=== PATIENT | female | born 1960 | race Caucasian/White ===

== ENCOUNTER → 2017-05-16 08:30 | Outpatient (CLI) | payer MEDICAID, SELFPAY | PROVIDERS: Family Provider Internal Medicine; PCP Internal Medicine; Visit Provider Clinical Nurse Specialist | DX: R00.2 Palpitations (principal) | CPT/HCPCS: 93225; 93226 ==

== ENCOUNTER 2017-06-14 08:00 | Outpatient (RCR) | payer MEDICAID, SELFPAY | END 2017-07-09 23:59 | LOC: NS 08:00 | PROVIDERS: Family Provider Internal Medicine; PCP Internal Medicine; Visit Provider Clinical Nurse Specialist | DX: E66.9 Obesity, unspecified (principal); Z71.3 Dietary counseling and surveillance | CPT/HCPCS: 97802 ==

== ENCOUNTER → 2017-06-30 07:29 | Outpatient (CLI) | payer MEDICAID, SELFPAY ==
--- NOTE | 2017-06-30 07:31 | ECHOD_ITS ---
Reason For Study: palpitations Procedure This was a 2D Doppler, Color Flow transthoracic echocardiogram. Exam performed in department. Left Ventricle Normal size and thickness. The estimated ejection fraction is 65 %. Stage 1 diastolic dysfunction. No regional wall motion abnormalities noted. Right Ventricle Normal size and thickness. Normal systolic function. Atria Normal left atrium. Normal right atrium. Normal atrial septum. Mitral Valve The mitral valve is structurally normal. No prolapse or stenosis seen. Tricuspid Valve Normal tricuspid valve. Trivial tricuspid valve insufficiency. Right ventricular systolic pressure estimated to be 35 mmHg. Aortic Valve Normal aortic valve. Trisinus/trileaflet aortic valve. Pulmonic Valve Normal pulmonic valve. Great Vessels Normal aortic root. Normal arch. Normal inferior vena cava. Inferior vena cava collapse with sniff. Pericardium/Pleural No pericardial effusion. MMode/2D Measurements & Calculations LVIDd: 4.8 cm IVSd: 0.87 cm LVOT diam: 2.1 cm LVIDs: 2.8 cm LVPWd: 0.97 cm LVOT area: 3.4 cm2 RVDd: 3.3 cm FS: 41.6 % Ao root diam: 2.9 cm LAV(MOD-bp): 63.2 ml LA A4 area: 18.7 cm2 LA dimension: 3.9 cm LAV(MOD-bp) Indexed: 30.0 ml/m2 LAV(MOD-sp2): 58.9 ml LAV(MOD-sp4): 57.8 ml RA A4 area: 14.8 cm2 Time Measurements MV dec time: 0.23 sec Doppler Measurements & Calculations MV E max luis: 92.5 cm/sec Lat Peak E' Luis: 10.9 cm/sec Med Peak E' Luis: 6.0 cm/sec MV A max luis: 113.0 cm/sec E/E' lat: 8.5 E/E' med: 15.4 MV E/A: 0.82 Ao V2 max: 175.8 cm/sec LV V1 max: 121.1 cm/sec SV(LVOT): 95.4 ml Ao max P.4 mmHg LV V1 max P.9 mmHg Ao V2 mean: 123.4 cm/sec LV V1 mean P.2 mmHg Ao mean P.6 mmHg LV V1 mean: 86.1 cm/sec Ao V2 VTI: 38.3 cm LV V1 VTI: 28.4 cm TYE(I,D): 2.5 cm2 TYE(V,D): 2.3 cm2 PA V2 max: 120.2 cm/sec TR max luis: 272.9 cm/sec TR max P.8 mmHg Interpretation Summary The estimated ejection fraction is 65 %. Stage 1 diastolic dysfunction. Trivial tricuspid valve insufficiency. Right ventricular systolic pressure estimated to be 35 mmHg. There is no comparison study available. Ordering Physician: Eugene Bustillo Referring Physician: Emily Grey Performed By: Mell Ch, RADHA, RVT
[2017-06-30 09:16] LABS: AST(SGOT) 35 U/L (15-37); Alanine Aminotransfer ALT/SGPT 54 U/L (13-56); Albumin, Serum 3.6 g/dL (3.2-5.0); Alkaline Phosphatase 71 U/L (45-117); Bilirubin, Direct 0.14 mg/dL (0.00-0.30); Cholesterol 162 mg/dL (200); Globulin 4.4 g/dL (2.2-4.2); High Density Lipoprotein 43 mg/dL; Triglycerides 129 mg/dL; Very Low Density Lipoprotein 26 mg/dL (5-40)
== END ==
PROVIDERS: Family Provider Internal Medicine; PCP Internal Medicine; Visit Provider Internal Medicine Cardiovascular Disease
DX: I34.0 Nonrheumatic mitral (valve) insufficiency (principal); I47.1 Supraventricular tachycardia; I10 Essential (primary) hypertension; R00.2 Palpitations
CPT/HCPCS: 36415; 80061; 80076; 93306

== ENCOUNTER → 2017-07-14 10:02 | Outpatient (CLI) | payer MEDICAID, SELFPAY ==
--- NOTE | 2017-07-14 10:04 | STE_ITS ---
Reason For Study: PALPITATIONS Stress Results Protocol: ARTIE Maximum Predicted HR: 163 bpm Target HR: 139 bpm % Maximum Predicted HR: 92 % DurationHeart Rate Stage (mm:ss) (bpm) BP BASELINE 70 138/90 STAGE 1 3:00 12 0 182/94 STAGE 2 3:00 15 0 198/100 RECOVERY 86 160/90 Stress Duration: 6:00 mm:ss Maximum Stress HR: 150 bpm Baseline Echocardiogram Findings The estimated ejection fraction is 65 %. Stress Echo Wall motion Data Resting WMIntermediate WMStress WM Resting Wall Motion Wall Motion Stress No regional wall motion No regional wall motion abnormalities noted. abnormalities noted. EKG Data Normal intervals are noted. The patient exercised according to the regular Artie protocol for a total duration of 6:00. The maximum heart rate attained was 151 beats per minute. This was 92% of maximum predicted heart rate. The patient exercised into stage 3 of the Artie protocol. During stress, there were no ST or T wave changes noted to suggest ischemia. No clinical angina was noted. Interpretation Summary The estimated ejection fraction is 65 %. Normal adequate treadmill echocardiogram. Negative for ischemia by EKG and echocardiographic criteria. No anginal symptoms noted. No arrhythmias noted. Rare PVCs noted. Hypertensive blood pressure response to exercise. Below average exercise capacity for age. Test terminated due to attainment of target heart rate. Final LVEF of 70%. No complications. Ordering Physician: Eugene Bustillo Referring Physician: Eugene Bustillo Performed By: Mell Ch, RADHA, RVT
== END ==
PROVIDERS: Family Provider Internal Medicine; PCP Internal Medicine; Visit Provider Internal Medicine Cardiovascular Disease
DX: I47.1 Supraventricular tachycardia (principal); R00.2 Palpitations; I10 Essential (primary) hypertension
CPT/HCPCS: 93017; 93350

== ENCOUNTER → 2019-10-04 06:57 | Outpatient (CLI) | payer MEDICAID, SELFPAY ==
[2019-09-20 09:01] VITALS: BMI 36.8
[2019-10-04 07:18] LABS: Hemoglobin 13.1 g/dL (12.0-15.0); Mean Corpuscular Hgb 28.9 pg (27.0-32.0); Mean Corpuscular Volume 90.5 fL (81-99); Mean Platelet Vol. 10.5 fl (6.2-12.0); Platelet Count 293 K/mm3 (150-450); RBC Distribution Width CV 13.6 % (11.6-14.6); RBC Distribution Width SD 45.1 fl (35.1-43.9); Red Blood Count 4.53 M/mm3 (4.2-5.4); White Blood Count 7.2 K/mm3 (4.4-11.0)
[2019-10-04 07:55] LABS: AST(SGOT) 43 U/L (15-37); Alanine Aminotransfer ALT/SGPT 71 U/L (13-56); Albumin, Serum 3.8 g/dL (3.2-5.0); Alkaline Phosphatase 65 U/L (45-117); Anion Gap 7 (5-15); BUN 15 mg/dL (7-18); BUN/Creat Ratio 21.5 RATIO (10-20); Bilirubin, Direct 0.18 mg/dL (0.00-0.30); Calcium,Total 9.3 mg/dL (8.5-10.1); Chloride 107 mmol/L (98-107); Cholesterol 155 mg/dL (200); EST Glomerular Filtration Rate 91 mL/min (>60); Est Glom Filt Rate - Afr Amer 110 mL/min (>60); Globulin 4.4 g/dL (2.2-4.2); Glucose 112 mg/dL (74-106); High Density Lipoprotein 47 mg/dL; Protein, Total 8.2 g/dL (6.4-8.2); Sodium Level 139 mmol/L (136-145); Triglycerides 96 mg/dL; Very Low Density Lipoprotein 19 mg/dL (5-40)
== END ==
PROVIDERS: PCP Internal Medicine; Referring Provider Internal Medicine Cardiovascular Disease; Visit Provider Internal Medicine Cardiovascular Disease
DX: R00.2 Palpitations (principal); I10 Essential (primary) hypertension; R79.89 Other specified abnormal findings of blood chemistry
CPT/HCPCS: 36415; 80048; 80061; 80076; 85027

== ENCOUNTER → 2019-10-18 07:38 | Outpatient (CLI) | payer MEDICAID, SELFPAY ==
[2019-09-20 09:01] VITALS: BMI 36.8
--- NOTE | 2019-10-18 07:40 | ECHOCS_ITS ---
Procedure This was a 2D Doppler, Color Flow transthoracic echocardiogram. The study was technically difficult. Contrast injection was performed. Exam performed in department. Left Ventricle Normal size and thickness. The estimated ejection fraction is 65 %. Stage 1 diastolic dysfunction. No regional wall motion abnormalities noted. Right Ventricle Normal size and thickness. Normal systolic function. Atria Normal left atrium. Normal right atrium. Normal atrial septum. Mitral Valve The mitral valve is structurally normal. No prolapse or stenosis seen. Trivial mitral valve insufficiency. Tricuspid Valve Normal tricuspid valve. Trivial tricuspid valve insufficiency. Right ventricular systolic pressure estimated to be 36 mmHg. Aortic Valve Trisinus/trileaflet aortic valve. Pulmonic Valve Normal pulmonic valve. Great Vessels Normal aortic root. Normal arch. Normal inferior vena cava. Inferior vena cava collapse with sniff. Pericardium/Pleural No pericardial effusion. Medication 22 gauge I.V. with prn adaptor inserted into right arm. Diluted definity 3.0ml given slow IV push to enhance endocardial definition. MMode/2D Measurements & Calculations LVIDd: 5.6 cm IVSd: 0.71 cm Ao root diam: 3.3 cm LVIDs: 3.2 cm LVPWd: 0.83 cm RVDd: 3.0 cm FS: 42.5 % LAV(MOD-bp): 59.9 ml LVAd ap4: 38.6 cm2 SV(MOD-sp4): 94.5 ml LAV(MOD-bp) Indexed: 28.0 ml/m2 EDV(MOD-sp4): 140.4 ml LAV(MOD-sp2): 61.8 ml EDV(sp4-el): 141.5 ml LAV(MOD-sp4): 46.7 ml LVAs ap4: 19.1 cm2 ESV(MOD-sp4): 45.9 ml ESV(sp4-el): 45.4 ml EF(MOD-sp4): 67.3 % EF(sp4-el): 67.9 % SV(sp4-el): 96.1 ml LA A4 area: 16.8 cm2 LA dimension(2D): 3.8 cm RA A4 area: 10.9 cm2 Time Measurements MV dec time: 0.28 sec Doppler Measurements & Calculations MV E max luis: 94.5 cm/sec Lat Peak E' Luis: 8.3 cm/sec Med Peak E' Luis: 5.7 cm/sec MV A max luis: 118.2 cm/sec E/E' lat: 11.3 E/E' med: 16.4 MV E/A: 0.80 Ao V2 max: 166.7 cm/sec LV V1 max: 114.5 cm/sec PA V2 max: 115.4 cm/sec Ao max P.1 mmHg LV V1 max P.3 mmHg TR max luis: 279.9 cm/sec TR max P.3 mmHg Interpretation Summary The estimated ejection fraction is 65 %. Stage 1 diastolic dysfunction. Trivial mitral valve insufficiency. Trivial tricuspid valve insufficiency. Right ventricular systolic pressure estimated to be 36 mmHg. Compared to echo report dated 06/30/2017, no appreciable changes noted. The study was technically difficult. Contrast injection was performed. Ordering Physician: Eugene Bustillo Referring Physician: DUNG MORALES Performed By: Suri Choi, RDCS, RVT
== END ==
PROVIDERS: PCP Internal Medicine; Referring Provider Internal Medicine Cardiovascular Disease; Visit Provider Internal Medicine Cardiovascular Disease
DX: R00.2 Palpitations (principal); R07.9 Chest pain, unspecified; I47.1 Supraventricular tachycardia
CPT/HCPCS: 93306; Q9957; A4216; C8929

== ENCOUNTER → 2019-11-30 09:23 | Outpatient (CLI) | payer MEDICAID, SELFPAY ==
[2019-09-20 09:01] VITALS: BMI 36.8
--- NOTE | 2019-11-30 09:23 | STEWCON_ITS ---
Reason For Study: CHEST PAIN, PALPS, SVT Stress Results Protocol: Stress Echocardiogram Maximum Predicted HR: 161 bpm Target HR: 137 bpm % Maximum Predicted HR: 92 % DurationHeart Rate Stage (mm:ss) (bpm) BP Comment BASELINE 64 122/86DILUTED DEFINITY 2 CC USED ARTIE PROTOCOL- STAGE 1 3:00 123 124/82PVCS, VENT COUPLETS, CHEST TIGHTNESS ARTIE PROTOCOL- STAGE 2 3:00 134 132/84CHEST TIGHTNESS SUBSIDED WHEN ECTOPY SUBSIDED ARTIE PROTOCOL- STAGE 3 0:30 148 / NO FURTHER CP, ECTOPY SUBSIDED RECOVERY 89 128/90DENIES COMPLAINT Stress Duration: 6:30 mm:ss Maximum Stress HR: 148 bpm Baseline Echocardiogram Findings The estimated ejection fraction is 65 %. Stress Echo Wall motion Data Resting WM Intermediate WM Stress WM Resting Wall Motion Wall Motion Stress No regional wall motion No regional wall motion abnormalities noted. abnormalities noted. EKG Data The baseline ECG displays normal sinus rhythm. The patient exercised according to the regular Artie protocol for a total duration of 6:29. The maximum heart rate attained was 148 beats per minute. This was 91% of maximum predicted heart rate. The patient exercised into stage 3 of the Artie protocol. During stress, there were no ST or T wave changes noted to suggest ischemia. No clinical angina was noted. Interpretation Summary The estimated ejection fraction is 65 %. Normal, adequate, treadmill echocardiogram. Negative for ischemia by EKG and echocardiographic criteria. No anginal symptoms noted. Rare PVCs noted during exercise. Test terminated due to attainment target heart rate. Final LVEF is 75%. Decrease sensitivity due to poor echo windows requiring Definity agent. Patient tolerated procedure well. No complications. The study was technically difficult. Contrast injection was performed. Ordering Physician: Eusebio Polo Referring Physician: Eugene Bustillo Performed By: Khadijah Whyte RDCS
== END ==
PROVIDERS: PCP Internal Medicine; Referring Provider Internal Medicine Cardiovascular Disease; Visit Provider Internal Medicine Cardiovascular Disease
DX: I10 Essential (primary) hypertension (principal); R07.9 Chest pain, unspecified; R00.2 Palpitations; I47.1 Supraventricular tachycardia
CPT/HCPCS: 93017; 93350; Q9957; A4216; C8928

== ENCOUNTER → 2021-11-21 | Outpatient (CLI) | payer MEDICAID, SELFPAY ==
--- NOTE | 2021-11-21 08:20 | RAD_ITS ---
HISTORY: RADICULOPATHY. TECHNIQUE: Cervical spine 5 views. COMPARISON: None. FINDINGS: VERTEBRAE: Vertebral body heights maintained. No acute fracture identified. ALIGNMENT: No significant anterior or posterior subluxation. Preservation of the cervical lordosis. INTERVERTEBRAL DISCS: Mild intervertebral disc space narrowing with endplate changes and osteophytes at C5-6 and C6-7. Mild foraminal narrowing at the right C5-6, left C3-4, and left C5-6 levels. SOFT TISSUES: No significant prevertebral soft tissue swelling. RAD/Cerv Spine 4 or 5 Views IMPRESSION: No acute fracture or dislocation identified in the cervical spine. Mild degenerative changes C5-6 and C6-7. Electronically Signed: Ev Florence MD at 10:21 EDT ,
== END | disposition home or self-care (01) ==
LOC: RAD 08:20
PROVIDERS: PCP Internal Medicine; Referring Provider Chiropractor; Visit Provider Chiropractor
DX: M54.12 Radiculopathy, cervical region (principal)
CPT/HCPCS: 72050